=== PATIENT | female | born 1990 | race Caucasian/White ===

== ENCOUNTER 2019-09-18 06:31 | Day surgery (SDC) | payer BC ==
[2019-09-16 09:36] VITALS: BMI 32.8
--- NOTE | 2019-09-17 08:52 | P.HPOB ---
History of Present Illness H&P Date: 09/17/19 Chief Complaint: Family planning Sharmila is a 29-year-old female who has completed her family planning and desires permanent sterilization. She was a 3 para 1. She had an IUD that was malpositioned approximately 1 month ago and it was removed and now she is proceeding with permanent sterilization. Risks/benefits/alternatives to a left scopic tubal occlusion were explained to the patient in detail including but not limited to bleeding and infection, damage to bladder or bowel, vascular injuries, nerve injuries even potential need further surgeries. She is aware this is designed to be a permanent procedure and not designed to be reversed and carries approximately 4% thousand failure rate. All questions are answered for her prior to proceeding to the operating room. Past Medical History Past Medical History: Asthma Additional Past Medical History / Comment(s): IBS, ENVIRONMENTAL ALLERGIES. History of Any Multi-Drug Resistant Organisms: None Reported Past Surgical History: Orthopedic Surgery Additional Past Surgical History / Comment(s): ARTHROSCOPY RIGHT KNEE (2009) Past Anesthesia/Blood Transfusion Reactions: No Reported Reaction, Motion Sickness Additional Past Anesthesia/Blood Transfusion Reaction / Comment(s): MOTHER HAD SEVERE VOMITING WITH MORPHINE. Past Psychological History: Anxiety, Depression Smoking Status: Never smoker Past Alcohol Use History: Occasional Past Drug Use History: None Reported - Past Family History Mother Family Medical History: No Reported History Medications and Allergies Home Medications Medication Instructions Recorded Confirmed Type ALPRAZolam [Xanax] 0.5 mg PO DIRECTED PRN 09/16/19 09/16/19 History Albuterol Inhaler [Ventolin Hfa 1 puff INHALATION RT-QID PRN 09/16/19 09/16/19 History Inhaler] Cetirizine HCl [Zyrtec] 10 mg PO HS 09/16/19 09/16/19 History FLUoxetine HCL [PROzac] 60 mg PO HS 09/16/19 09/16/19 History L.acidoph,Paracasei, B.lactis 2 cap PO DAILY 09/16/19 09/16/19 History [Probiotic] Montelukast [Singulair] 10 mg PO HS 09/16/19 09/16/19 History Rx For Ibs (Unknown Name) 1 dose PO DIRECTED PRN 09/16/19 History Allergies Allergy/AdvReac Type Severity Reaction Status Date / Time BAND-AID AdvReac Unknown RED RASH Uncoded 09/16/19 09:22 Exam Osteopathic Statement: *. No significant issues noted on an osteopathic structural exam other than those noted in the History and Physical/Consult. - OBG Physical Exam Breast: both: normal (no masses) Abdomen: bowel sounds normal, no diffuse tenderness, no bruit present, no g uarding noted, no hepatomegaly, no splenomegaly, no mass Vulva: both: normal Vagina: normal moisture, no discharge Cervix: no lesion, no discharge Uterus: normal size, normal contour Adnexa: both: normal Anus/Rectum: normal perianal skin, no rectal mass, no hemorrhoids, heme negative
[~2019-09-18 06:31] MED LIST: DEXAMETHASONE SOD PHOSPHATE 10 MG/ML 1 ML VIAL IV ONE; KETOROLAC 30 MG/ML 1 ML VIAL IVP SCH; LACTATED RINGERS 1,000 ML IV SCH; LIDOCAINE 1% (10MG/ML) FOR IV START INTRADERMA PRN; METOCLOPRAMIDE 5 MG/ML 2 ML VIAL IVP PRN; Pre Op ABX Message 1 EACH MISC MISCELLANE ONE; SCOPOLAMINE 1.5MG/72HR PATCH TRANSDERM ONE
[2019-09-18 07:04] VITALS: RESP 16
[2019-09-18] MEDS: ONDANSETRON 4 MG/2 ML VIAL IVP ONE ×2 (07:15→09:12)
[2019-09-18] MEDS ORDERED: ONDANSETRON 4 MG/2 ML VIAL ONE (07:17)
[2019-09-18] MEDS ORDERED: LIDOCAINE 1% INJ 10MG/ML (20 ML MDV) ONE (07:53)
[2019-09-18] MEDS ORDERED: GLYCOPYRROLATE 0.2 MG/ML 2 ML VIAL ONE (07:53)
[2019-09-18] MEDS ORDERED: MIDAZOLAM 2 MG/2 ML VIAL ONE (07:53)
[2019-09-18] MEDS ORDERED: SUCCINYLCHOLINE CHLORIDE 100 MG/5 ML SYR IV ONE (07:53)
[2019-09-18] MEDS ORDERED: HYDROmorphone (PF) 1 MG/ML ONE (07:53)
[2019-09-18] MEDS ORDERED: ROCURONIUM BROMIDE 10 MG/ML 5 ML VIAL IV ONE (07:53)
[2019-09-18] MEDS ORDERED: fentaNYL (PF) 50 MCG/ML 2 ML AMP ONE (07:53)
[2019-09-18] MEDS ORDERED: PROPOFOL 10 MG/ML 20 ML VIAL IV ONE (07:53)
[2019-09-18] MEDS ORDERED: NEOSTIGMINE 1 MG/ML 10 ML VIAL ONE (07:53)
[2019-09-18] MEDS ORDERED: BUPIVACAINE (PF) 0.25% 30 ML VIAL SQ ONE (08:36)
[2019-09-18] MEDS ORDERED: LACTATED RINGERS 1,000 ML IV ONE (08:40)
--- NOTE | 2019-09-18 08:48 | P.OP ---
Date of Procedure: 09/18/19 Preoperative Diagnosis: Family planning Postoperative Diagnosis: Same Procedure(s) Performed: Laparoscopic tubal ligation with Filshie clips Anesthesia: ЕЛЕНА Surgeon: Zackery Stover Estimated Blood Loss (ml): 5 IV fluids (ml): 850 Urine output (ml): 50 Pathology: none sent Condition: stable Disposition: same day Operative Findings: Normal female pelvic anatomy Description of Procedure: Patient was taken to the operating suite where a general anesthetic was found be adequate. She was prepped and draped in normal sterile fashion and placed in the dorsal lithotomy position. Initially a speculum was inserted into the vagina and a anterior lip of cervix was identified and grasped with an Allis clamp. An acorn manipulator was then inserted without difficulty and the speculum was removed. Red rubber catheter was then used to drain the bladder of urine. It was then removed. Gloves were then changed and attention was turned to the abdominal portion of the procedure. Plan - Discharge Summary Discharge Rx Participant: Yes New Discharge Prescriptions: New Ibuprofen [Motrin] 600 mg PO Q6HR PRN #30 tab PRN Reason: Pain HYDROcodone/APAP 5-325MG [[place] 5-325] 1 tab PO Q4HR PRN #30 tab PRN Reason: Pain No Action FLUoxetine HCL [PROzac] 60 mg PO HS Montelukast [Singulair] 10 mg PO HS Cetirizine HCl [Zyrtec] 10 mg PO HS Albuterol Inhaler [Ventolin Hfa Inhaler] 1 puff INHALATION RT-QID PRN PRN Reason: Shortness Of Breath ALPRAZolam [Xanax] 0.5 mg PO DIRECTED PRN PRN Reason: Anxiety L.acidoph,Paracasei, B.lactis [Probiotic] 2 cap PO DAILY Rx For Ibs (Unknown Name) 1 dose PO DIRECTED PRN PRN Reason: IBS Discharge Medication List ALPRAZolam [Xanax] 0.5 mg PO DIRECTED PRN 09/16/19 [History] Albuterol Inhaler [Ventolin Hfa Inhaler] 1 puff INHALATION RT-QID PRN 09/16/19 [History] Cetirizine HCl [Zyrtec] 10 mg PO HS 09/16/19 [History] FLUoxetine HCL [PROzac] 60 mg PO HS 09/16/19 [History] L.acidoph,Paracasei, B.lactis [Probiotic] 2 cap PO DAILY 09/16/19 [History] Montelukast [Singulair] 10 mg PO HS 09/16/19 [History] Rx For Ibs (Unknown Name) 1 dose PO DIRECTED PRN 09/16/19 [History] HYDROcodone/APAP 5-325MG [[place] 5-325] 1 tab PO Q4HR PRN #30 tab 09/18/19 [Rx] Ibuprofen [Motrin] 600 mg PO Q6HR PRN #30 tab 09/18/19 [Rx] Follow up Appointment(s)/Referral(s): Zackery Stover DO [Doctor of Osteopathic Medicine] - 2 Weeks Patient Instructions/Handouts: *Surgery [facility] - Scopalamine Patch Instructions Activity/Diet/Wound Care/Special Instructions: No heavy lifting, limit stairs and driving, and pelvic rest. If any high temperatures, heavy bleeding, or severe pain call my office
[2019-09-18 09:06] VITALS: TEMP 96.9
[2019-09-18] MEDS: HYDROmorphone 0.5 MG/0.5 ML SYRINGE IVP PRN ×4 (09:06→09:29)
[2019-09-18] MEDS ORDERED: ALBUTEROL NEBULIZED 2.5 MG/3 ML INHALATION ONE (09:20)
[2019-09-18 10:19] VITALS: BP 114/74; PULSE 89
== END 2019-09-18 11:05 | disposition home or self-care (01) ==
LOC: OR 06:31
PROVIDERS: ATTEND Obstetrics & Gynecology
DX: Z30.2 Encounter for sterilization (principal); K58.9 Irritable bowel syndrome, unspecified; Z98.890 Other specified postprocedural states; F41.9 Anxiety disorder, unspecified; F32.9 Major depressive disorder, single episode, unspecified; Z79.899 Other long term (current) drug therapy; Z91.09 Other allergy status, other than to drugs and biological substances; J45.909 Unspecified asthma, uncomplicated
CPT/HCPCS: 81025; 58671; J2250; J1100; J2710; J2405; J2001; J3010; J1885; J1170 ×2; J0330; J2704

== ENCOUNTER 2021-03-14 08:58 | Emergency (ER) | payer BC, MEDICAID ==
[2021-03-14 09:02] VITALS: BP 124/87; PULSE 92; RESP 22; TEMP 97
[2021-03-14] MEDS ORDERED: DEXAMETHASONE SOD PHOSPHATE 10 MG/ML 1 ML VIAL IV STA (09:10)
--- NOTE | 2021-03-14 09:34 | XR ---
EXAMINATION TYPE: XR chest 1V portable DATE OF EXAM: 03/14/2021 COMPARISON: NONE HISTORY: Cough. COVID positive. TECHNIQUE: Single frontal view of the chest is obtained. FINDINGS: There is some patchy left basilar opacity consistent with atelectasis and/or infiltrate. R ight lung is clear. No pleural effusion or pneumothorax seen bilaterally. The cardiac silhouette size is within normal limits. The osseous structures are intact. IMPRESSION: Patchy left basilar acute atelectasis and/or infiltrate.
[2021-03-14 09:41] LABS: ALT 12 U/L (4-34); AST 17 U/L (14-36); African American GFR (CKD) >90 (>60 ml/min/1.73 sqM); Albumin 4.1 g/dL (3.5-5.0); Blood Urea Nitrogen 18 mg/dL (7-17); Carbon Dioxide 23 mmol/L (22-30); Glucose 112 mg/dL (74-99); Non-African American GFR(CKD) >90 (>60 ml/min/1.73 sqM); Potassium 3.6 mmol/L (3.5-5.1); Total Bilirubin 0.8 mg/dL (0.2-1.3); Total Protein 6.9 g/dL (6.3-8.2)
[2021-03-14 09:42] LABS: Alkaline Phosphatase 83 U/L (38-126); Anion Gap 10 mmol/L; Chloride 104 mmol/L (98-107); Sodium 137 mmol/L (137-145)
[2021-03-14 09:49] LABS: INR 0.9 (<1.2); Partial Thromboplastin Time 22.4 sec (22.0-30.0); Prothrombin Time 9.6 sec (9.0-12.0)
--- NOTE | 2021-03-14 10:11 | ED ---
General Adult HPI - General Chief complaint: Shortness of Breath Stated complaint: covid+, increased SOB Time Seen by Provider: 03/14/21 09:03 Source: patient, RN notes reviewed, old records reviewed Mode of arrival: ambulatory Limitations: no limitations - History of Present Illness Initial comments: 31-year-old female with approximately 1 week of cough, congestion, and coronavirus. Patient had been vaccinated and did receive monoclonal antibodies approximately one week ago. She continues to have significant cough and dyspnea. She has been eating and drinking well. No significant vomiting or diarrhea. Cough is worse at night. She completed a dose of steroids and states that as soon as the steroids were discontinued she did have worsening symptoms. She has a history of asthma. - Related Data Home Medications Medication Instructions Recorded Confirmed ALPRAZolam [Xanax] 0.5 mg PO DIRECTED PRN 09/16/19 09/16/19 Albuterol Inhaler [Ventolin Hfa 1 puff INHALATION RT-QID PRN 09/16/19 09/16/19 Inhaler] Cetirizine HCl [Zyrtec] 10 mg PO HS 09/16/19 09/16/19 FLUoxetine HCL [PROzac] 60 mg PO HS 09/16/19 09/16/19 L.acidoph,Paracasei, B.lactis 2 cap PO DAILY 09/16/19 09/16/19 [Probiotic] Montelukast [Singulair] 10 mg PO HS 09/16/19 09/16/19 Rx For Ibs (Unknown Name) 1 dose PO DIRECTED PRN 09/16/19 Previous Rx's Medication Instructions Recorded HYDROcodone/APAP 5-325MG [[place] 1 tab PO Q4HR PRN #30 tab 09/18/19 5-325] Ibuprofen [Motrin] 600 mg PO Q6HR PRN #30 tab 09/18/19 Dexamethasone [Decadron] 6 mg PO DAILY #5 tablet 03/14/21 Allergies Allergy/AdvReac Type Severity Reaction Status Date / Time BAND-AID AdvReac Unknown RED RASH Uncoded 03/14/21 09:02 Review of Systems ROS Statement: Those systems with pertinent positive or pertinent negative responses have been documented in the HPI. ROS Other: All systems not noted in ROS Statement are negative. Past Medical History Past Medical History: Asthma Additional Past Medical History / Comment(s): IBS, ENVIRONMENTAL ALLERGIES. History of Any Multi-Drug Resistant Organisms: None Reported Past Surgical History: Orthopedic Surgery Additional Past Surgical History / Comment(s): ARTHROSCOPY RIGHT KNEE (2009) Past Anesthesia/Blood Transfusion Reactions: No Reported Reaction, Motion Sickness Additional Past Anesthesia/Blood Transfusion Reaction / Comment(s): MOTHER HAD SEVERE VOMITING WITH MORPHINE. Past Psychological History: Anxiety, Depression Smoking Status: Never smoker Past Alcohol Use History: Occasional Past Drug Use History: None Reported - Past Family History Mother Family Medical History: No Reported History General Exam Limitations: no limitations General appearance: alert, in no apparent distress Head exam: Present: atraumatic, normocephalic Eye exam: Present: normal appearance, PERRL Neck exam: Present: normal inspection. Absent: tenderness, meningismus Respiratory exam: Present: respiratory distress. Absent: wheezes, rales, rhonchi Cardiovascular Exam: Present: regular rate, normal rhythm GI/Abdominal exam: Present: soft. Absent: distended, tenderness, guarding Extremities exam: Present: normal inspection Neurological exam: Present: alert, oriented X3, CN II-XII intact. Absent: motor sensory deficit Psychiatric exam: Present: normal affect, normal mood Skin exam: Present: warm, dry, intact. Absent: cyanosis, diaphoretic Course Vital Signs 03/14/21 08:59 Temperature 97 F L Pulse Rate 92 Respiratory 22 Rate Blood Pressure 124/87 O2 Sat by Pulse 98 Oximetry EKG Findings - EKG Comments: EKG Findings:: EKG: Normal sinus rhythm, rate of 80, DC interval 140, QRS duration 90, QTC 4:15, T-wave inversion in V3. Medical Decision Making - Medical Decision Making Increased dyspnea secondary to COVID-19. Patient is not hypoxic. She does have good air entry without significant wheezing. D-dimer and basic laboratory testing was ordered. D-dimer, troponin CBC and CMP are unremarkable. Chest x- ray shows minimal basilar infiltrate. She will be prescribed Decadron for the next 5 days. She will continue to take vitamin C, zinc, vitamin D. Return parameters discussed. - Lab Data Result diagrams: 03/14/21 09:09 Lab Results 03/14/21 03/14/21 03/14/21 Range/Units 09:09 09:09 09:09 PT 9.6 (9.0-12.0) sec INR 0.9 (<1.2) APTT 22.4 (22.0-30.0) sec D-Dimer 0.39 (<0.60) mg/L FEU Sodium 137 (137-145) mmol/L Potassium 3.6 (3.5-5.1) mmol/L Chloride 104 (98-107) mmol/L Carbon Dioxide 23 (22-30) mmol/L Anion Gap 10 mmol/L BUN 18 H (7-17) mg/dL Creatinine 0.82 (0.52-1.04) mg/dL Est GFR (CKD-EPI)AfAm >90 (>60 ml/min/1.73 sqM) Est GFR (CKD-EPI)NonAf >90 (>60 ml/min/1.73 sqM) Glucose 112 H (74-99) mg/dL Calcium 10.0 (8.4-10.2) mg/dL Total Bilirubin 0.8 (0.2-1.3) mg/dL AST 17 (14-36) U/L ALT 12 (4-34) U/L Alkaline Phosphatase 83 (38-126) U/L Troponin I <0.012 (0.000-0.034) ng/mL Total Protein 6.9 (6.3-8.2) g/dL Albumin 4.1 (3.5-5.0) g/dL Disposition Clinical Impression: COVID-19 Disposition: HOME SELF-CARE Condition: Fair Instructions (If sedation given, give patient instructions): Coronavirus Disease 2019 (COVID-19) Prescriptions: Dexamethasone [Decadron] 6 mg PO DAILY #5 tablet Is patient prescribed a controlled substance at d/c from ED?: No Referrals: Joel Garcia MD [Primary Care Provider] - 1-2 days Time of Disposition: 10:34
[2021-03-14 10:57] LABS: Basophils % (A) 1 %; Eosinophils # (A) 0.2 k/uL (0-0.7); Eosinophils % (A) 3 %; HCT 43.3 % (34.0-46.0); HGB 14.5 gm/dL (11.4-16.0); Lymphocytes # (A) 1.9 k/uL (1.0-4.8); Lymphocytes % (A) 32 %; MCH 30.6 pg (25.0-35.0); MCHC 33.5 g/dL (31.0-37.0); MCV 91.3 fL (80.0-100.0); Monocytes # (A) 0.4 k/uL (0-1.0); Monocytes % (A) 7 %; Neutrophils # (A) 3.2 k/uL (1.3-7.7); Neutrophils % (A) 55 %; Platelet Count 302 k/uL (150-450); RBC 4.74 m/uL (3.80-5.40); RDW 11.9 % (11.5-15.5); WBC 5.8 k/uL (3.8-10.6)
== END 2021-03-14 11:11 | disposition home or self-care (01) ==
LOC: EC 08:58
DX: U07.1 COVID-19 (principal); J45.909 Unspecified asthma, uncomplicated; F41.9 Anxiety disorder, unspecified; F32.A Depression, unspecified
CPT/HCPCS: 99285; 96374; 36415; 85379; 80053; 84484; 85025; 85610; 85730; 71045; J1100

== ENCOUNTER → 2021-08-02 | Outpatient (CLI) | payer MEDICAID ==
--- NOTE | 2021-08-02 10:01 | US ---
EXAMINATION TYPE: US mass soft tissue chest/back DATE OF EXAM: 08/02/2021 COMPARISON: NONE CLINICAL HISTORY: R22.31 SWELLING,MASS AND LUMP. Left upper back painful/palpable lump x 1 years Scanned patient's area of concern - appears wnl IMPRESSION: No solid or cystic mass noted by ultrasound. If there is clearly a palpable abnormality consider MRI.
== END | disposition home or self-care (01) ==
LOC: RADUSWWP 09:00
PROVIDERS: ATTEND Surgery Plastic and Reconstructive Surgery
DX: R22.2 Localized swelling, mass and lump, trunk (principal)